=== PATIENT | female | born 1980 | race Caucasian/White ===

== ENCOUNTER 2016-06-20 10:53 | Emergency (ER) | payer OTHER, MEDICARE ==
[~2016-06-20] VITALS: Ht 149.9 cm; Wt 75.0 kg
[2016-06-20 11:08] VITALS: BP 126/80; PULSE 68; RESP 21; TEMP 98; O2SAT 100
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
[2016-06-20] MEDS ORDERED: DICY10CA12 PO (12:53)
[2016-06-20] MEDS ORDERED: FLUD.1 PO (12:53)
[2016-06-20] MEDS ORDERED: ESTR1TAB PO (12:53)
[2016-06-20] MEDS ORDERED: HYDR20TA PO ×2 (12:53)
[2016-06-20 12:55] VITALS: BP 115/76; PULSE 71; RESP 16; O2SAT 96
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
[2016-06-20] MEDS ORDERED: TYLE325T PO (13:53)
== END 2016-06-20 14:04 | disposition home or self-care (01) ==
LOC: NEPC 10:53
DX: S13.4XXA Sprain of ligaments of cervical spine, initial encounter (principal); S29.019A Strain of muscle and tendon of unspecified wall of thorax, initial encounter; V49.50XA Passenger injured in collision with unspecified motor vehicles in traffic accident, initial encounter; Y92.411 Interstate highway as the place of occurrence of the external cause
CPT/HCPCS: 72072; 72110